=== PATIENT | male | born 1990 | race Caucasian/White ===

== ENCOUNTER 2016-10-16 19:25 | Emergency (ER) | payer OTHER ==
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
--- NOTE | 2016-10-16 21:02 | ED ORDER SUMMARY ---
..... Patient: TAURUS COLEMAN OrderSheet [facility] VisitID: [id number] [place] [address] 26y, M Registration Date/Time: 10/16/2016 ORDER SHEET Weight: 86.1 kg (stated) Allergies: No Known Drug Allergy GENERAL ORDERS: Knee 4V Right Urgent (19:51 10/16/2016 HBivens A.R.N.P.) (Ack 20:03 Carlosegekimana) (20:06 MCampbell) Garrick Wrap (20:59 10/16/2016 HBivens A.R.N.P.) (21:12 JQuivey R.N.) MEDICATION ORDERS: Toradol IM 60 mg (NOW) (19:51 10/16/2016 HBivens A.R.N.P.) (Ack 19:52 JQuivey R.N.) (19:57 JQuivey R.N.) IV FLUIDS: ORDER SHEET NOTES: [Electronically signed by Rocio Chan.R.N.P. (21:20 10/16/2016)] [Electronically signed by Tyler Hernández R.N. (22:51 10/16/2016)] [Electronically locked/signed by Tyler Hernández R.N. (22:51 10/16/2016)]
--- NOTE | 2016-10-16 21:02 | ED ORDER SUMMARY ---
..... Patient: TAURUS COLEMAN OrderSheet [facility] VisitID: [id number] [place] [address] 26y, M Registration Date/Time: 10/16/2016 ORDER SHEET Weight: 86.1 kg (stated) Allergies: No Known Drug Allergy GENERAL ORDERS: Knee 4V Right Urgent (19:51 10/16/2016 HBivens A.R.N.P.) (Ack 20:03 Carlosegekimana) (20:06 MCampbell) Garrick Wrap (20:59 10/16/2016 HBivens A.R.N.P.) (21:12 JQuivey R.N.) MEDICATION ORDERS: Toradol IM 60 mg (NOW) (19:51 10/16/2016 HBivens A.R.N.P.) (Ack 19:52 JQuivey R.N.) (19:57 JQuivey R.N.) IV FLUIDS: ORDER SHEET NOTES: [Electronically signed by Rocio Chan.R.N.P. (21:20 10/16/2016)] [Electronically signed by Tyelr Hernández R.N. (22:51 10/16/2016)] [Electronically locked/signed by Tyler Hernández R.N. (22:51 10/16/2016)]
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
--- NOTE | 2016-10-16 22:51 | ED MAR SUMMARY ---
..... Medication Administration Record [facility] [address] [place] [address] Patient: TAURUS COLEMAN Visit ID: [id number] 26y, M Weight: 86.1 kg Height/Length: 69 in BMI: 28.1 ALLERGIES: No Known Drug Allergy Given 19:57 10/16/2016 Tyler Hernández RDarinNDarin Medication Administered: TORADOL [IM] (KETOROLAC TROMETHAMINE), Dose: 60 mg IM. Medication Ordered: Toradol IM 60 mg (NOW).
--- NOTE | 2016-10-16 22:51 | ED MED RECONCILIATION SUMMARY ---
Patient: TAURUS COLEMAN Medication Reconciliation Report [facility] VisitID: [id number] [place] [address] 26y, M Registration Date/Time: 10/16/2016 Weight: 86.1 kg Height/Length: 69 in. BMI: 28.1 ALLERGIES: No Known Drug Allergy The patient's Home Medications are listed below: NONE. The source(s) of the original Home Medication information: patient The following Medications were given to the patient in the Emergency Department: Toradol [IM] IM 60 mg, administered: 10/16/2016 7:57:00 PM The following Medications were prescribed to the patient: Naproxen 500 mg tablets: take 1 orally every 12 hours as needed for pain. Dispense twenty (20). No refills. -- Rocio Chan, Xenia.R.N.P. Xanax 0.25 mg: Take 1 orally every 8 hours as needed for anxiety. Dispense fifteen (15). No refills. Substitution is permissible. -- Rocio Chan A.R.N.P.
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
--- NOTE | 2016-10-16 22:51 | ED MAR SUMMARY ---
..... Medication Administration Record [facility] [address] [place] [address] Patient: TAURUS COLEMAN Visit ID: [id number] 26y, M Weight: 86.1 kg Height/Length: 69 in BMI: 28.1 ALLERGIES: No Known Drug Allergy Given 19:57 10/16/2016 Tyler Hernández RDarinNDarin Medication Administered: TORADOL [IM] (KETOROLAC TROMETHAMINE), Dose: 60 mg IM. Medication Ordered: Toradol IM 60 mg (NOW).
--- NOTE | 2016-10-16 22:51 | ED MED RECONCILIATION SUMMARY ---
Patient: TAURUS COLEMAN Medication Reconciliation Report [facility] VisitID: [id number] [place] [address] 26y, M Registration Date/Time: 10/16/2016 Weight: 86.1 kg Height/Length: 69 in. BMI: 28.1 ALLERGIES: No Known Drug Allergy The patient's Home Medications are listed below: NONE. The source(s) of the original Home Medication information: patient The following Medications were given to the patient in the Emergency Department: Toradol [IM] IM 60 mg, administered: 10/16/2016 7:57:00 PM The following Medications were prescribed to the patient: Naproxen 500 mg tablets: take 1 orally every 12 hours as needed for pain. Dispense twenty (20). No refills. -- Rocio Chan, Xenia.R.N.P. Xanax 0.25 mg: Take 1 orally every 8 hours as needed for anxiety. Dispense fifteen (15). No refills. Substitution is permissible. -- Rocio Chan A.R.N.P.
== END 2016-10-16 21:11 | disposition home or self-care (01) ==
LOC: ED SRH 19:25
DX: S83.411A Sprain of medial collateral ligament of right knee, initial encounter (principal); S00.83XA Contusion of other part of head, initial encounter; Y04.0XXA Assault by unarmed brawl or fight, initial encounter; Y92.009 Unspecified place in unspecified non-institutional (private) residence as the place of occurrence of the external cause